=== PATIENT | male | born 1975 | race Caucasian/White ===

== ENCOUNTER 2018-05-10 19:39 | Emergency (ER) | payer OTHER, SELFPAY ==
--- NOTE | 2018-05-10 19:48 | ERPHSYRPT ---
- History of Present Illness Time Seen by Provider: 05/10/18 19:48 Source: patient, family Exam Limitations: no limitations Physician History: 42 y/o white male presents one day after suffering an insect bite. he did not see the insect type. noticed a small reddened area yesterday. today area of redness increased in size significantly. pt did take an old keflex user acceptance tester. pt denies fever. Timing/Duration: day(s) (one) Quality: itchy Severity: mild Location: extremities (left upper) Possible Causes: insect bite Associated Symptoms: swelling/mass/lumps, No blisters, No change in skin texture , No difficulty breathing, No edema, No fever, No headache, No hives, No jaundice, No malaise, No nasal congestion, No numbness, No rash Allergies/Adverse Reactions: No Known Drug Allergies Allergy (Unverified 05/29/15 23:24) Hx Tetanus, Diphtheria Vaccination/Date Given: No Hx Influenza Vaccination/Date Given: No Hx Pneumococcal Vaccination/Date Given: No - Review of Systems Constitutional: No Symptoms, No Fever, No Chills Eyes: No Symptoms, No Eye Pain Ears, Nose, & Throat: No Symptoms, No Ear Pain, No Nose Pain, No Nose Congestion Respiratory: No Symptoms, No Cough, No Dyspnea, No Stridor, No Wheezing Cardiac: No Symptoms, No Chest Pain, No Palpitations, No Syncope Abdominal/Gastrointestinal: No Symptoms, No Abdominal Pain, No Nausea, No Vomiting, No Diarrhea Genitourinary Symptoms: No Symptoms, No Dysuria, No Frequency, No Hematuria Musculoskeletal: No Symptoms, No Back Pain, No Neck Pain, No Deformity, No Fall Skin: Induration, Other (redness left upper ex) Neurological: No Symptoms Psychological: No Symptoms Endocrine: No Symptoms Hematologic/Lymphatic: No Symptoms Immunological/Allergic: No Symptoms All Other Systems: Reviewed and Negative - Past Medical History Pertinent Past Medical History: Yes Neurological History: No Pertinent History ENT History: No Pertinent History Cardiac History: No Pertinent History Respiratory History: No Pertinent History Endocrine Medical History: No Pertinent History Musculoskeletal History: No Pertinent History GI Medical History: No Pertinent History History: No Pertinent History Psycho-Social History: No Pertinent History Male Reproductive Disorders: No Pertinent History - Past Surgical History Past Surgical History: No Neuro Surgical History: No Pertinent History Cardiac: No Pertinent History Respiratory: No Pertinent History Gastrointestinal: No Pertinent History Genitourinary: No Pertinent History Musculoskeletal: No Pertinent History Male Surgical History: No Pertinent History Other Surgical History: lymph nodes removed from groin - Social History Smoking Status: Heavy tobacco smoker How long have you smoked: 20 yrs Exposure to second hand smoke: Yes Drug Use: none Patient Lives Alone: No - Nursing Vital Signs Nursing Vital Signs: Initial Vital Signs Temperature 99.6 F 05/10/18 19:50 Pulse Rate 103 H 05/10/18 19:50 Respiratory Rate 18 05/10/18 19:50 Blood Pressure 160/103 05/10/18 19:50 O2 Sat by Pulse Oximetry 100 05/10/18 19:50 Pain Scale Pain Intensity 2 - Physical Exam General Appearance: no apparent distress, alert, anxiety Eye Exam: PERRL/EOMI, eyes nml inspection Ears, Nose, Throat Exam: normal ENT inspection Neck Exam: normal inspection, non-tender, supple, full range of motion Respiratory Exam: normal breath sounds, lungs clear, airway intact, No chest tenderness, No respiratory distress, No accessory muscle use, No rhonchi, No wheezing, No stridor Cardiovascular Exam: regular rate/rhythm, normal heart sounds, normal peripheral pulses Gastrointestinal/Abdomen Exam: soft, normal bowel sounds, No tenderness, No guarding, No rebound Rectal Exam: not done Back Exam: normal inspection, normal range of motion, No CVA tenderness, No vertebral tenderness Extremity Exam: other (well circumscribed oval shaped 16cm x8cm sl red and sl raised patch. no red streaks ) Skin Exam: other (see above) Lymphatic Exam: No adenopathy SpO2 Interpretation: normal Oxygen Delivery: Room Air - Course Nursing assessment & vital signs reviewed: Yes Ordered Tests: Medication Summary Discontinued Medications Generic Name Dose Route Start Last Admin Trade Name Freq PRN Reason Stop Dose Admin Ceftriaxone Sodium 1,000 mg 05/10/18 19:53 05/10/18 20:05 Rocephin 1000 Mg Inj IM 05/10/18 19:54 1,000 mg STAT ONE Administration Ceftriaxone Sodium Confirm 05/10/18 20:00 Rocephin 1000 Mg Inj Administered 05/10/18 20:01 Dose 1,000 mg .ROUTE .STK-MED ONE Diphenhydramine HCl 50 mg 05/10/18 19:54 05/10/18 20:05 Benadryl 25 Mg Capsule PO 05/10/18 19:55 50 mg STAT ONE Administration Diphenhydramine HCl Confirm 05/10/18 19:59 Benadryl 25 Mg Capsule Administered 05/10/18 20:00 Dose 50 mg .ROUTE .STK-MED ONE Famotidine 40 mg 05/10/18 19:54 05/10/18 20:05 Pepcid 20 Mg PO 05/10/18 19:55 40 mg STAT ONE Administration Famotidine Confirm 05/10/18 19:59 Pepcid 20 Mg Administered 05/10/18 20:00 Dose 40 mg .ROUTE .STK-MED ONE Lidocaine HCl Confirm 05/10/18 20:00 Xylocaine 1% Hcl 20 Ml Mdv Administered 05/10/18 20:01 Dose 3 ml .ROUTE .STK-MED ONE Methylprednisolone Sodium Succinate 125 mg 05/10/18 19:54 05/10/18 20:06 Solu-Medrol 125 Mg IM 05/10/18 19:55 125 mg STAT ONE Administration Methylprednisolone Sodium Succinate Confirm 05/10/18 20:00 Solu-Medrol 125 Mg Administered 05/10/18 20:01 Dose 125 mg .ROUTE .STK-MED ONE - Progress Progress: unchanged Counseled pt/family regarding: diagnosis, need for follow-up - Departure Time of Disposition: 20:20 Departure Disposition: Home Clinical Impression: Allergic reaction, Cellulitis Condition: Stable Critical Care Time: No Referrals: NBA SHERMAN [Primary Care Provider] - Additional Instructions: keep area clean daily with soap and water. follow up with primary doctor for persistent symptoms. add benadryl 25mg orally 3 times daily for 4 days. add over the counter zantac 75mg orally 2 times daily for 4 days. return to ED if symptoms worsen Prescriptions: Cephalexin Mh 500 mg [Keflex 500 mg] 500 mg PO TID #15 capsule Prednisone 10 mg [Deltasone 10 mg] 10 mg PO TID #12 tablet
[2018-05-10] MEDS ORDERED: Rocephin 1000 MG INJ IM ONE (19:53)
[2018-05-10] MEDS ORDERED: Pepcid 20 MG PO ONE (19:54)
[2018-05-10] MEDS ORDERED: BENADRYL 25 MG CAPSULE PO ONE (19:54)
[2018-05-10] MEDS ORDERED: solu-MEDROL 125 MG IM ONE (19:54)
[2018-05-10] MEDS ORDERED: BENADRYL 25 MG CAPSULE ONE (19:59)
[2018-05-10] MEDS ORDERED: Pepcid 20 MG ONE (19:59)
[2018-05-10] MEDS ORDERED: Rocephin 1000 MG INJ ONE (20:00)
[2018-05-10] MEDS ORDERED: XYLOCAINE 1% HCL 20 ML MDV ONE (20:00)
[2018-05-10] MEDS ORDERED: solu-MEDROL 125 MG ONE (20:00)
[2018-05-10 20:33] VITALS: BP 134/90; PULSE 91; O2SAT 98
== END 2018-05-10 20:32 | disposition home or self-care (01) ==
LOC: ED 19:39
DX: L03.114 Cellulitis of left upper limb (principal); W57.XXXA Bitten or stung by nonvenomous insect and other nonvenomous arthropods, initial encounter
CPT/HCPCS: 96372; 96374; 99284; J0696; J2930; A9270-GY

== ENCOUNTER 2020-12-31 17:12 | Emergency (ER) | payer OTHER ==
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
[2020-12-31 18:30] VITALS: BP 140/88; PULSE 90; O2SAT 96
== END 2020-12-31 18:34 | disposition home or self-care (01) ==
LOC: ED 17:12
DX: T20.20XA Burn of second degree of head, face, and neck, unspecified site, initial encounter (principal); T20.22XA Burn of second degree of lip(s), initial encounter; T22.131A Burn of first degree of right upper arm, initial encounter; X08.8XXA Exposure to other specified smoke, fire and flames, initial encounter; Y93.H3 Activity, building and construction; Y92.414 Local residential or business street as the place of occurrence of the external cause; Y99.9 Unspecified external cause status
CPT/HCPCS: 99283